=== PATIENT | female | born 1980 | race Caucasian/White ===

== ENCOUNTER → 2018-04-09 16:40 | Outpatient (CLI) | payer OTHER, SELFPAY ==
[2018-04-16 10:42] LABS: HPV Reflexed? NOT INDICATED
== END ==
PROVIDERS: Visit Provider Obstetrics & Gynecology
DX: Z12.4 Encounter for screening for malignant neoplasm of cervix (principal)
CPT/HCPCS: 88175; G0145

== ENCOUNTER → 2019-06-25 14:58 | Outpatient (CLI) | payer OTHER, SELFPAY ==
[2019-06-25 07:06] VITALS: BMI 26.3
[2019-06-25 15:48] LABS: Mucous, Urine 0 SEEN /hpf (<or=2+)
[2019-06-25 16:42] LABS: Color, Urine Yellow (Yellow); Glucose, Dipstick Normal (Normal); Ketone-Dipstick 5 mg/dl (Negative); Leukocyte Esterase-Dipstick 500 /ul (Negative); Nitrite-Dipstick Positive (Negative); Occult Blood-Urine 250 /ul (Negative); Protein-Dipstick 100 mg/dl (Negative); Urine Clarity Cloudy (Clear); Urine Urobilinogen 4 mg/dl (Normal)
[2019-06-25 16:56] LABS: Urine Bilirubin Dipstick 3 mg/dL (Negative)
[2019-06-25 17:06] LABS: Red Blood Cells-Urine 25-50 SEEN /hpf (0-5)
[2019-06-25 17:07] LABS: Amorphous Sediment 1+; Bacteria 2+ /hpf (None Seen); Squamous Epithelial Cells - UA 5-10 SEEN /hpf (5-10); White Blood Cells >100 SEEN /hpf (0-5)
== END ==
PROVIDERS: Referring Provider Physician Assistant Surgical; Visit Provider Physician Assistant Surgical
DX: N30.90 Cystitis, unspecified without hematuria (principal)
CPT/HCPCS: 81001; 87086; 87088; 87186

== ENCOUNTER → 2020-06-29 16:53 | Outpatient (CLI) | payer OTHER, SELFPAY ==
[2019-06-25 07:06] VITALS: BMI 26.3
[2020-07-04 20:55] LABS: HPV Reflexed? NOT INDICATED
== END ==
PROVIDERS: Visit Provider Obstetrics & Gynecology
DX: Z12.4 Encounter for screening for malignant neoplasm of cervix (principal)
CPT/HCPCS: 88175; G0145

== ENCOUNTER → 2020-07-25 17:30 | Outpatient (CLI) | payer OTHER, SELFPAY ==
[2019-06-25 07:06] VITALS: BMI 26.3
--- NOTE | 2020-07-25 16:46 | BI_ITS ---
MAMMOGRAPHY - BILATERAL SCREENING REASON FOR EXAM: Female, 40 years old. Routine annual screening examination. PERTINENT HISTORY: Mother with breast cancer. TECHNIQUE: Digital bilateral breast moon (3D mammographic acquisition) in the CC and MLO projections. 2-D mediolateral oblique (MLO) and craniocaudad (CC) views of both breasts were obtained. CAD: Full Field Digital Mammography with Computer Added Detection was performed. COMPARISON: Comparison is made with prior study dated 03/12/2017 and 02/03/2014. FINDINGS: Breast Composition: The breasts are heterogeneously dense, which may obscure small masses. There are no dominant masses or suspicious calcifications. No other significant abnormalities are identified. There has been no significant change since the prior study. BI/SCREEN MAMM (CAD) W/MOON BILAT IMPRESSION: Stable bilateral screening mammogram. Yearly follow-up mammogram recommended. (A) ASSESSMENT CATEGORY: BIRADS Category 1: Negative. A letter regarding these results will be sent to the patient by the facility within 30 days. Approximately 10% of breast cancers are not detected by mammography. A normal mammogram should not delay biopsy of a clinically suspicious abnormality. [id number] Electronically Signed: Lex Hill, at 8:55 EDT , Service support ,
== END ==
PROVIDERS: Referring Provider Obstetrics & Gynecology; Visit Provider Obstetrics & Gynecology
DX: Z12.31 Encounter for screening mammogram for malignant neoplasm of breast (principal); Z80.3 Family history of malignant neoplasm of breast
CPT/HCPCS: 77063; 77067

== ENCOUNTER → 2021-08-22 12:17 | Outpatient (CLI) | payer OTHER, SELFPAY ==
--- NOTE | 2021-08-22 12:21 | BI_ITS ---
MAMMOGRAPHY - BILATERAL SCREENING 3-D TOMOSYNTHESIS REASON FOR EXAM: Female, 41 years old. SCREENING PERTINENT HISTORY: No significant family history. TECHNIQUE: 2-D mammograms and 3-D Tomosynthesis of the breast (s) were performed. CAD was performed. COMPARISON: 07/25/2020 FINDINGS: The breast composition is heterogeneously dense that can obscure small breast masses. Scattered benign calcifications are seen. No dense spiculated masses or suspicious microcalcifications are identified. No architectural distortion is identified. There is no skin thickening or retraction. There has been no significant change since the prior study. BI/SCRN MAMM (CAD)W/MOON BILAT IMPRESSION: No mammographic signs of malignancy. Routine yearly mammograms recommended. ASSESSMENT CATEGORY: BIRADS Category 1: Negative. A letter regarding these results will be sent to the patient by the facility within 30 days. FOLLOW UP RECOMMENDATION: Yearly follow up mammogram recommended. (A) Approximately 10% of breast cancers are not detected by mammography. A normal mammogram should not delay biopsy of a clinically suspicious abnormality. Electronically Signed: Edin Nunez MD at 14:01 EDT Tel , Service support ,
== END ==
PROVIDERS: Referring Provider Obstetrics & Gynecology; Visit Provider Obstetrics & Gynecology
DX: Z12.31 Encounter for screening mammogram for malignant neoplasm of breast (principal)
CPT/HCPCS: 77063; 77067

== ENCOUNTER → 2022-08-27 | Outpatient (CLI) | payer OTHER, SELFPAY ==
--- NOTE | 2022-08-27 15:46 | BI_ITS ---
MAMMOGRAPHY - BILATERAL SCREENING REASON FOR EXAM: Female, 42 years old. Routine annual screening examination. PERTINENT HISTORY: Mother with breast cancer. TECHNIQUE: Digital bilateral breast moon (3D mammographic acquisition) in the CC and MLO projections. 2-D mediolateral oblique (MLO) and craniocaudad (CC) views of both breasts were obtained. CAD: Full Field Digital Mammography with Computer Added Detection was performed. COMPARISON: Comparison is made with prior examination 08/22/2021 and 07/25/2020. FINDINGS: Breast Composition: The breasts are heterogeneously dense, which may obscure small masses. There are no dominant masses or suspicious calcifications. No other significant abnormalities are identified. There has been no significant change since the prior study. BI/SCRN MAMM (CAD)W/MOON BILAT IMPRESSION: Stable bilateral screening mammogram. Yearly follow-up mammogram recommended. (A) ASSESSMENT CATEGORY: BIRADS Category 1: Negative. A letter regarding these results will be sent to the patient by the facility within 30 days. Approximately 10% of breast cancers are not detected by mammography. A normal mammogram should not delay biopsy of a clinically suspicious abnormality. [id number] Electronically Signed: Lex Hill MD at 8:40 EDT ,
== END | disposition home or self-care (01) ==
LOC: OPBI 15:45
PROVIDERS: Visit Provider Obstetrics & Gynecology
DX: Z12.31 Encounter for screening mammogram for malignant neoplasm of breast (principal); Z80.3 Family history of malignant neoplasm of breast
CPT/HCPCS: 77063; 77067

== ENCOUNTER 2022-10-21 05:22 | Day surgery (SDC) | payer OTHER, SELFPAY ==
[2022-10-15 17:07] LABS: Mean Corp Hgb Conc 33.3 g/dL (32-36); Mean Corpuscular Hgb 30.6 pg (27.0-32.0); Mean Corpuscular Volume 91.7 fL (81-99); Mean Platelet Vol. 8.7 fl (6.2-12.0); Platelet Count 393 K/mm3 (150-450); RBC Distribution Width SD 40.3 fl (35.1-43.9); Red Blood Count 4.58 M/mm3 (4.2-5.4); White Blood Count 10.2 K/mm3 (4.4-11.0)
[2022-10-15 17:39] LABS: Magnesium 2.5 mg/dL (1.6-2.6)
[2022-10-21] VITALS (9 sets, daily range): BP systolic 88–128; BP diastolic 52–93; PULSE 48–75; RESP 14–16; TEMP 36.2–36.7; O2SAT 96–100; BMI 32.4
--- NOTE | 2022-10-21 | HYST_PTH ---
PATIENT: JOSÉ LUIS ARIZA LOC: [facility] [place] U#:[id number] AGE/SX: 42/F ROOM: RE10/21/[address]: Dr. Bear Veloz MD : 1980 BED: DIS: 10/21/2022 SPEC #: [id number] RECD: 10/21/22 12:36 STATUS: MICHAELA INOCENTE #: [id number] DANNA: 10/21/22 00:[address]: Bear Veloz DEPT: SURGICAL PATHOLOGY RECD BY: Randell Escamilla ENTERED: 10/21/22 12:36 SP TYPE: HYSTERECT OTHR DR: Dr. Karyna Ortega, Tissues: Uterus, NOS Procedures: Surgery Specimen Level V HEADER OPERATION: Lap robotic hysterectomy, bilateral salpingectomy, cystoscopy PRE-OP DIAGNOSIS: Abnormal uterine bleeding TISSUE SUBMITTED: Uterus and bilateral fallopian tubes MICROSCOPIC DIAGNOSIS Uterus, hysterectomy: Cervix ? nabothian cysts, chronic inflammation and squamous metaplasia. Endometrium ? Secretory endometrium and benign stromal hyperplasia consistent with exogenous hormonal effect. Myometrium ? leiomyomas and adenomyosis. Right and left fallopian tubes - No pathologic change. AM:kimberly 10/22/2022 MICROSCOPIC DESCRIPTION Slides are reviewed. GROSS DESCRIPTION Received in fixative is one container labeled with the patient's name and designated uterus and bilateral fallopian tubes. The specimen consists of a hysterectomy specimen consisting of uterus with cervix and detached bilateral fallopian tubes. The uterus with cervix weighs 197 gm and measures 12 x 8 x 5.5 cm. The serosal surface is walters, glistening. Multiple subserosal nodules are noted. The ectocervical mucosa is focally eroded. The external os is oval in contour. The endocervical canal measures 5 cm in length and the endocervical mucosa is unremarkable. The endocervical canal is filled with mucoid material. The triangular endometrial cavity measures 5.5 cm in length and up to 3 cm in width. The endometrium is walters, glistening without any mass lesions and measures 0.1 cm in thickness. The endometrial cavity also shows a white T-shaped intrauterine device. The vertical arm measures 3 cm in length and horizontal arm measures 3 cm in length. A two-prong suture is also attached to the intrauterine device measuring 7.5 cm in length. The intrauterine device is free floating without any invasion to underlying wall. Sections of the uterine wall reveal multiple intramural and subserosal nodular masses. The largest mass measures 2 cm in diameter. Sections of these masses reveal walters whorled cut surfaces without areas of hemorrhage, necrosis or cystic degeneration. The uninvolved uterine wall measures up to 2.5 cm in thickness. The fallopian tubes are not identified as right or left. One of the fallopian tubes measure 5 cm in length and 1 cm in diameter. In this fallopian tube, the fimbrial end is not identified. The second fallopian tube measures 5 cm in length and 0.7 cm in diameter. The fimbrial end is identified. Sections of the fallopian tube do not reveal any mass lesion. [employer] sections are submitted in 12 cassettes as follows: 1 - anterior cervix, 2 - posterior cervix, 3 & 4 - anterior uterine wall, 5 & 6 - posterior uterine wall, 7 - largest nodular mass, 8 - second largest nodular mass, 9 - smaller nodular masses, 10 & 11 - fallopian tube, identifiable fimbrial end, entirely submitted, 12 - second fallopian tube with fimbrial end. / RENNY:kimberly 10/21/2022 TC:1 CPT: 21872
[2022-10-21 06:12] LABS: Internal QC Validated? YES +Cl - CLEAR BKGD; Pregnancy, Urine Negative Negative
[2022-10-21] MEDS: Lactated Ringers 1,000 ML 40 ML IV (06:29)
[2022-10-21] MEDS: Acetaminophen 500 MG Tablet 1000 MG PO (06:31)
[2022-10-21] MEDS: Gabapentin 600 MG Tablet PO (06:32)
--- NOTE | 2022-10-21 06:44 | PCM.HP.BLA ---
History and Physical Date of Admission: 10/21/22 Chief complaint: Abnormal uterine bleeding History of present illness: 42-year-old arrives for robotic assisted total laparoscopic hysterectomy and bilateral salpingectomy cystoscopy for abnormal uterine bleeding and leiomyomas. No medical changes since last seen. All questions answered and consent signed. Obstetrical history: G1: Term primary section G2: SAB Past medical history: None Medications: None Allergies: No known drug allergies Past surgical history: section, skin graft, appendectomy Social history: Former smoker, denies alcohol, drug use Family history: Denies history DVT or PE Review of systems: Besides above pertinent positives a full review of systems was performed and found to be negative Physical exam: Vitals: Blood pressure 128/90 respiratory rate 16 temperature 97.9 ?F SPO2 96% on room air General: Normal-appearing no acute distress HEENT: Normocephalic/atraumatic no cervical lymphadenopathy Cardiac/respiratory: No use of multisensor intelligence officer muscles, nonlabored breathing Abdomen: Soft, nontender, nondistended Extremities: No peripheral edema normal peripheral pulses Psych: Normal affect normal demeanor nonpressured speech Labs: Urine test negative Assessment plan: 42-year-old for robotic assisted total laparoscopic hysterectomy and bilateral salpingectomy and cystoscopy for abnormal uterine bleeding and leiomyomas. Educated patient on adverse benefits alternatives of the procedure. Patient states understanding and wished to proceed. All questions were answered and consent was signed.
[2022-10-21] MEDS: Cefazolin 2 GM in 0.9% Normal Saline 100 ML IV (07:27)
[2022-10-21 08:00] LABS: Bedside Glucose 75 mg/dL (74-106)
--- NOTE | 2022-10-21 09:26 | DCINST_ITS ---
Discharge Instructions Diet Discharge Diet: No restrictions Activity Discharge Activity: Return to Normal Activity, May Drive, May Shower and - (No tub baths for 2 weeks) May resume sexual activity in: 4-6 weeks Lifting Restrictions: No lifting over 25 pounds for 2 to 3 weeks Dressing / Incision Call your doctor if your incision/area has: Continuous Slow Oozing and Foul Smelling Discharge Call your doctor if you observe: Fever of 101 or Higher, Shortness of breath and Chest pain Follow Up Care Please Follow Up With: Bear Veloz MD When: 2 weeks postoperatively Test Results: Test results from this visit will be discussed in further detail at your follow- up appointment, if applicable. Discharge Plan Admission Primary Reason for Your Visit: Abnormal uterine bleeding Attending Provider: Bear Veloz Primary Care Provider: Karyna Oretga Discharge Orders/Prescriptions Prescriptions: New oxycodone 5 mg Tablet 5 mg PO Q6H PRN PRN (Reason: Pain Score 7-10/10) 5 Days Qty: 20 0RF Discontinued drospirenone-ethinyl estradiol 3-0.02 mg tablet 1 tab PO DAILY Label Comments: take 1 tablet by mouth once daily Referrals / Follow Up: Karyna Ortega, [Primary Care Provider] - Disposition Disposition (needs filled in before D/C Order can be placed): Home, Self Care
--- NOTE | 2022-10-21 09:26 | OP.PCM_ITS ---
Report of Operation Date of Procedure: 10/21/22 Pre-Operative Diagnosis: Abnormal uterine bleeding, leiomyomas Post-Operative Diagnosis: Abnormal uterine bleeding, leiomyomas Surgery/Procedure Performed:: Robotic assisted total laparoscopic hysterectomy bilateral salpingectomy, cystoscopy Description of Surgical Findings:: Surgeon: Bear Veloz MD Anesthesia: General EBL: 50 cc Urine output: 1000 cc none IV fluids: 2000 cc Complications: None Specimen: Cervix, uterus, bilateral fallopian tubes Findings: 14 cm uterus, multiple submucosal and subserosal fibroids. Moderate bladder adhesions. Post procedure cystoscopy with bilateral ureteral jets noted and no pathology noted. Consent: Patient with abnormal uterine bleeding and leiomyomas elects for robotic assisted total laparoscopic hysterectomy bilateral salpingectomy and cystoscopy. Patient understands the risk of the procedure include but are not limited to visceral or vascular injury, prolonged hospitalization, blood loss and need for transfusion, reoperation. Patient state understanding and wished to proceed. All questions were answered and consent was signed. Procedure: Patient brought back to the OR where general anesthesia was found to be adequate. 2 g of Ancef were given for infection prophylaxis. Patient was prepared and draped in a dorsolithotomy position with yellowfin stirrups. A weighted speculum is placed in the posterior aspect of vagina and cervical dilators were used to dilate the cervix. Uterine manipulator was placed. Varies needle was inserted at the umbilicus and water safety test was passed, abdomen was insufflated. 8 mm midline supraumbilical trocar was inserted under direct visualization. Laparoscope was inserted and above findings were noted. Bilateral lower quadrant 8 mm robotic trochars were inserted under direct visualization. Left upper quadrant 8 mm trocar was inserted under direct visualization. Robot was docked. Bilateral ureters were identified and noted to be out of the operative field. Using a vessel sealer and monopolar scissors the left round ligament was identified cut and cauterized, anterior and posterior portions of broad ligament were dissected. Bladder flap was developed. Left loping tube was identified out to the fimbria and the mesosalpinx was cut and cauterized, fallopian tube transected and removed from abdominal cavity, sent to pathology. Left uterine vessels were skeletonized cut and cauterized lateralized beyond the colpotomy cup. Right round ligament was cut and cauterized anterior and posterior portions of the broad ligament were dissected. Bladder flap was fully developed beyond the level colpotomy cup. Right fallopian tube was identified to the fimbria and the mesosalpinx was cut and cauterized, right fallopian tube was transected and removed from abdominal cavity and sent to pathology. Right uterine vessels were skeletonized cut and cauterized, lateralized beyond the level to colpotomy cup. Circumferential colpotomy was made. Uterus was removed from the abdominal cavity and sent to pathology. Good hemostasis was noted. Using a V-Loc suture the colpotomy was closed in a continuous running fashion. Good hemostasis was noted. Abdomen was irrigated, good hemostasis was noted. Abdominal pressure decreased, good hemostasis was noted. Cystoscopy was performed and above findings were noted, bilateral ureteral jets were noted and no pathology noted. Abdomen was desufflated and trochars were removed under direct visualization. Good hemostasis was noted. Laparoscopic port sites were closed in a subcutaneous fashion. Good hemostasis was noted. All counts were correct x2. Patient tolerated procedure well and was brought to recovery in stable condition. construction person: Nino Travis
[2022-10-21] MEDS: Ondansetron 4 MG/2 ML Vial IV (10:00)
== END 2022-10-21 13:51 | disposition home or self-care (01) ==
LOC: SDC 05:26 → AC 05:27
PROVIDERS: Anesthesiology; Referring Provider Obstetrics & Gynecology; Visit Provider Obstetrics & Gynecology
PROC: 0UT90ZZ Resection of Uterus, Open Approach (ICD-10-PCS; CPT 58262; principal; 2022-10-21 07:10)
DX: N93.9 Abnormal uterine and vaginal bleeding, unspecified (principal); D25.9 Leiomyoma of uterus, unspecified; Z87.891 Personal history of nicotine dependence; E78.00 Pure hypercholesterolemia, unspecified
CPT/HCPCS: 58262; 00944; 36415; 81025; 82962; 83735; 85027; 86850; 86900; 86901; 88307; J7120; J2405; J3475